=== PATIENT | male | born 1950 ===

== ENCOUNTER 2018-10-24 08:41 | Day surgery (SDC) | payer BC ==
[~2018-10-24] VITALS: Ht 180.3 cm; Wt 86.2 kg
[2018-10-24] MEDS ORDERED: Hair, Skin & N1 EACH (09:13)
== END 2018-10-24 11:20 | disposition home or self-care (01) ==
LOC: ORSCSDS 08:41
PROVIDERS: Internal Medicine Gastroenterology
PROC: 0DBK8ZX Excision of Ascending Colon, Via Natural or Artificial Opening Endoscopic, Diagnostic (ICD-10-PCS; principal; 2018-10-24 10:00)
PROC: 0DBP8ZX Excision of Rectum, Via Natural or Artificial Opening Endoscopic, Diagnostic (ICD-10-PCS; principal; 2018-10-24 10:00)
DX: Z12.11 Encounter for screening for malignant neoplasm of colon (principal); D12.2 Benign neoplasm of ascending colon; K62.1 Rectal polyp; K57.30 Diverticulosis of large intestine without perforation or abscess without bleeding; K64.8 Other hemorrhoids
CPT/HCPCS: 88305; J2704; J7120